=== PATIENT | male | born 1985 | race Caucasian/White ===

== ENCOUNTER 2020-04-04 15:39 | Emergency (ER) | payer OTHER ==
--- NOTE | 2020-04-04 16:37 | ED Physician Documentation ---
PD HPI FOCAL NEURO - Stated complaint Stated Complaint: LEFT SIDE NUMBNESS, LIGHTHEADED - Chief complaint Chief Complaint: Neuro - History obtained from History obtained from: Patient - Additional information Additional information: 34-year-old gentleman at around 89 today developed left-sided neck ache and numbness in the left arm and upper chest as well as an odd feeling in the occiput. Not particularly painful. He did have some what he thought muscular tightness near the left scapula over the last few days. Symptoms are improving since onset. Review of Systems Ten Systems: 10 systems reviewed and negative Constitutional: reports: Reviewed and negative Nose: reports: Reviewed and negative Throat: reports: Reviewed and negative PD PAST MEDICAL HISTORY - Past Medical History Past Medical History: No - Past Surgical History Past Surgical History: Yes General: Appendectomy - Present Medications Home Medications: Ambulatory Orders Medication Instructions Recorded Confirmed No Known Home Medications 04/04/20 04/04/20 - Allergies Allergies/Adverse Reactions: Allergies Allergy/AdvReac Type Severity Reaction Status Date / Time No Known Drug Allergies Allergy Verified 04/04/20 15:43 - Social History Does the pt smoke?: No Smoking Status: Never smoker Does the pt drink ETOH?: Yes Does the pt have substance abuse?: No PD ED PE NORMAL - Vitals Vital signs reviewed: Yes - General General: Alert and oriented X 3, No acute distress - HEENT HEENT: PERRL, EOMI - Neck Neck: Supple, no meningeal sign, No bony TTP - Cardiac Cardiac: RRR, No murmur - Respiratory Respiratory: No respiratory distress, Clear bilaterally - Abdomen Abdomen: Non tender - Back Back: No CVA TTP, No spinal TTP - Derm Derm: Normal color, Warm and dry - Extremities Extremities: No edema, No calf tenderness / cord - Neuro Neuro: Alert and oriented X 3, Normal speech NIHSS - Time Time: 16:37 - Level of Consciousness Level of consciousness: (0) Alert, Keenly responsive LOC Questions: (0) Answers both Q's correct LOC Commands: (0) Performs both correctly - Gaze Best Gaze: (0) Normal - Visual Visual: (0) No loss - Facial Palsy Facial Palsy: (0) Normal, symmetrical movement - Motor Arms (both separate) Motor Arm (right): (0) No drift Motor Arm (left): (0) No drift - Motor Legs (both separate) Motor Leg (right): (0) No drift Motor Leg (left): (0) No drift - Limb Ataxia Limb Ataxia: (0) Absent - Sensory Sensory: (0) Normal - Best Language Best Language: (0) No aphasia - Dysarthria Dysarthria: (0) Normal - Extinction and Inattention (formally neg Extinction and inattention: (0) No abnormality - Total Score/Results Total Score/Result: 0 Results - Vitals Vitals: Vital Signs - 24 hr 04/04/20 04/04/20 15:43 18:20 Temperature 37.0 C Heart Rate 77 68 Respiratory 18 16 Rate Blood Pressure 156/93 H 137/91 H O2 Saturation 100 Oxygen O2 Source Room air - EKG (time done) 1808 Rate: Rate (enter#) (65) Rhythm: NSR [place]: Normal Intervals: Normal [place] Ischemia: Other (There is an LVH pattern which given his age and athletic nature is likely consistent with athlete's heart.) Computer interpretation: Agree with computer - Labs Labs: Laboratory Tests 04/04/20 04/04/20 04/04/20 16:40 16:40 16:40 WBC 8.1 RBC 4.73 Hgb 14.7 Hct 41.4 L MCV 87.5 MCH 31.1 H MCHC 35.5 RDW 11.6 L Plt Count 226 MPV 9.8 Neut # (Auto) 5.8 Lymph # (Auto) 1.3 L [place] # (Auto) 0.7 Eos # (Auto) 0.3 Baso # (Auto) 0.1 Absolute Nucleated RBC 0.00 Nucleated RBC % 0.0 Sodium 139 Potassium 4.0 Chloride 102 Carbon Dioxide 28 Anion Gap 9.0 BUN 14 Creatinine 1.0 Estimated GFR (MDRD) 86 L Glucose 88 Calcium 9.8 Troponin I High Sens 2.9 PD MEDICAL DECISION MAKING - ED course ED course: 34-year-old gentleman with left arm paresthesias and some muscular discomfort in his back. Most likely radiculopathy or similar, but differential diagnosis also includes vertebral dissection, CVA. Seems to diffuse to be early shingles. To rule out vascular etiology CT angiography of the head and neck was done with no pertinent positive findings. EKG read as LVH and left atrial enlargement, given his age and athletic nature presume this is most consistent with athlete's heart. Departure - Departure Disposition: 01 Home, Self Care Clinical Impression: Paresthesia Condition: Good Record reviewed to determine appropriate education?: Yes Instructions: ED Paraesthesias Comments: No evidence of stroke or vascular issues today, no Evidence of issues with your heart. Could still be a pinched nerve in your neck despite the normal CAT scan, that should get better on its own without specific treatment but sometimes will require a follow-up with your primary care physician for referrals. Return for new or worsening symptoms. Discharge Date/Time: 04/04/20 18:23
[2020-04-04 16:44] LABS: BASOPHILS # (AUTO) 0.1 10^3/uL (0.0-0.1); BASOPHILS % (AUTO) 0.7 %; EOSINOPHILS # (AUTO) 0.3 10^3/uL (0.0-0.7); EOSINOPHILS % (AUTO) 3.2 %; HGB - HEMOGLOBIN 14.7 g/dL (14.0-18.0); LYMPHOCYTES # (AUTO) 1.3 10^3/uL (1.5-3.5); LYMPHOCYTES % (AUTO) 15.7 %; MEAN CORPUSCULAR HEMOGLOBIN 31.1 pg (27.0-31.0); MEAN CORPUSCULAR HGB CONC 35.5 g/dL (32.0-36.0); MEAN CORPUSCULAR VOLUME 87.5 fL (80.0-94.0); MEAN PLATELET VOLUME 9.8 fL (7.4-11.4); MONOCYTES # (AUTO) 0.7 10^3/uL (0.0-1.0); MONOCYTES % (AUTO) 8.3 %; NEUTROPHILS # (AUTO) 5.8 10^3/uL (1.5-6.6); NEUTROPHILS % (AUTO) 71.7 %; PLT - PLATELET COUNT 226 10^3/uL (130-450); RED BLOOD COUNT 4.73 10^6/uL (4.70-6.10); RED CELL DISTRIBUTION WIDTH 11.6 % (12.0-15.0); WHITE BLOOD COUNT 8.1 x10^3/uL (4.8-10.8)
[2020-04-04 16:53] LABS: CALCIUM 9.8 mg/dL (8.5-10.3)
[2020-04-04] MEDS ORDERED: IOVERSOL 320 100 ML VIAL IVP ONE ×2 (17:11→18:27)
--- NOTE | 2020-04-04 17:57 | CT Report ---
PROCEDURE: ANGIO HEAD W/WO INDICATIONS: L neck pain, numbness CONTRAST: IV CONTRAST: Optiray 320 ml: 80 PO CONTRAST: *NO PO CONTRAST TECHNIQUE: Precontrast 4.5 mm thick angled axial sections acquired from the foramen magnum to the vertex. Afte r the administration of intravenous contrast, 1 mm thick sections acquired through the [place]. Postcontrast 4.5 mm thick sections then re-acquired from the foramen magnum to the vertex. 3-di mensional qaoktma-xagpzlhnf-oevpkthhli (MIP) and/or volume rendering reformats were acquired of the c entral intracranial vasculature. For radiation dose reduction, the following was used: automated ex posure control, adjustment of mA and/or kV according to patient size. COMPARISON: Correlation is made with the accompanying neck CT angiogram, 04/04/2020. FINDINGS: Image quality: Excellent. Anterior circulation: Intracranial internal carotid arteries are normal in size and flow. Note is m lynn of a hypoplastic right A1 segment, with a correspondingly robust left A1 segment. This is conside red to be a developmental variant of no clinical consequence. The flow within the paired anterior ce rebral arteries is otherwise normal and symmetric. The flow within the middle cerebral arteries is n ormal and symmetric. The anterior communicating artery is seen. No aneurysms are seen. Posterior circulation: Visualized portions of the vertebral arteries demonstrate normal caliber, and join to form a normal appearing basilar artery. Flow within the posterior cerebral arteries is norm al and symmetric. No aneurysms are seen. CSF spaces: Ventricles are normal in size and shape. Basal cisterns are patent. No extra-axial flu id collections. Brain: No midline shift. No intracranial bleeds or masses. Adame-white matter interface appears int act. Pineal region calcification is seen, which is not regarded to be benign. Skull and face: Calvarium and facial bones appear intact, without suspicious lesions. Sinuses: Moderate mucosal thickening is seen within the maxillary sinuses. IMPRESSION: No significant intracranial abnormality is seen. No significant intracranial arterial abnormalities are seen. Reviewed by: Raul Reynoso MD on 04/04/2020 4:55 PM [place] Approved by: Raul Reynoso MD on 04/04/2020 4:55 PM [facility] Station ID: [id number]
--- NOTE | 2020-04-04 17:58 | CT Report ---
PROCEDURE: ANGIO NECK W INDICATIONS: L neck pain, numbness CONTRAST: IV CONTRAST: Optiray 320 ml: 80 PO CONTRAST: *NO PO CONTRAST TECHNIQUE: After the administration of intravenous contrast, 1.5 mm axial sections acquired from the aortic arch to the [place]. Coronal 3-D maximum intensity projection (MIP) and/or volume rendering ref ormats were then performed. For radiation dose reduction, the following was used: automated exposur e control, adjustment of mA and/or kV according to patient size. COMPARISON: Correlation is made with the accompanying head CT angiogram, 04/04/2020. FINDINGS: Image quality: Excellent. Carotid system: The great vessels demonstrate a conventional anatomy as they arise from the aortic a rch. The origins of the common carotid arteries appear patent. The common carotid arteries demonstr ate normal calibers and courses. The bifurcation regions appear normal bilaterally. The internal ca rotid arteries demonstrate normal caliber and course. Posterior circulation: The origins of the vertebral arteries appear patent. The more superior porti ons of the vertebral arteries demonstrate normal course and caliber. They join to form a normal appe aring basilar artery. Soft tissues: Visualized neck soft tissues demonstrate no suspicious abnormalities. The thyroid gla nd is normal in size. Bones: No suspicious bony lesions. Visualized cervical spine appears normally aligned. Moderate m ucosal thickening is seen within the maxillary sinuses, right worse than left. There is mild leftward nasal septal deviation. IMPRESSION: No hemodynamically significant stenosis can be seen within the arteries of the neck. No findings of dissection are seen. The estimate of stenosis included in the report of the imaging study was calculated using the NASCET method Reviewed by: Raul Reynoso MD on 04/04/2020 4:57 PM [place] Approved by: Raul Reynoso MD on 04/04/2020 4:57 PM [facility] [place] Station ID: [id number]
[2020-04-04 18:21] VITALS: BP 137/91
== END 2020-04-04 18:23 | disposition home or self-care (01) ==
LOC: ED 15:39
DX: R20.2 Paresthesia of skin (principal); M54.2 Cervicalgia; I51.7 Cardiomegaly
CPT/HCPCS: 36415; 70496; 70498; 80048; 84484; 85025; 93005; 99284; Q9967